=== PATIENT | female | born 1985 | race Caucasian/White ===

== ENCOUNTER 2018-06-15 12:01 | Outpatient (CLI) | payer MEDICAID ==
[2018-06-15 12:43] LABS: ADD UMIC YES; UR ASCORBIC ACID 40 mg/dL (NEGATIVE); UR BACTERIA FEW /HPF (NONE SEEN); UR BILIRUBIN (Dip) NEGATIVE (NEGATIVE); UR BLOOD (Dip) NEGATIVE (NEGATIVE); UR CALCIUM OXALATE CRYSTAL MODERATE /HPF (NONE SEEN); UR CLARITY CLOUDY (CLEAR); UR COLOR YELLOW (YELLOW); UR GLUCOSE (Dip) NEGATIVE (NEGATIVE); UR KETONES (Dip) NEGATIVE (NEGATIVE); UR LEUKOCYTE ESTERASE (Dip) NEGATIVE Leu/ul (NEGATIVE); UR MUCUS FEW /HPF (NONE SEEN); UR NITRITE (Dip) NEGATIVE (NEGATIVE); UR RBC 8 /HPF (0-5); UR SPECIFIC GRAVITY (Dip) 1.024 (1.003-1.030); UR SQUAMOUS EPITHELIAL CELL FEW /HPF (FEW); UR TOTAL PROTEIN (Dip) NEGATIVE (NEGATIVE); UR UROBILINOGEN (Dip) NEGATIVE (NEGATIVE); UR WBC 4 /HPF (0-5)
[2018-06-15 12:59] LABS: RUPTURE FETAL MEMBRANES NEGATIVE (NEGATIVE)
== END 2018-06-15 16:19 | disposition home or self-care (01) ==
LOC: OBT 12:01 → L-D 12:01 → OBT 16:19
DX: O42.92 Full-term premature rupture of membranes, unspecified as to length of time between rupture and onset of labor (principal); Z3A.37 37 weeks gestation of pregnancy
CPT/HCPCS: 76818; 81001; 84112; 87086

== ENCOUNTER 2018-06-21 17:06 | Inpatient (IN) | payer MEDICAID ==
[2018-06-21] MEDS ORDERED: LACTATED RINGER'S 1,000 ML IV (17:51)
[2018-06-21] MEDS ORDERED: OXYTOCIN 30 UNITS/LR 500 ML IV (18:00)
[2018-06-21] MEDS ORDERED: CARBOPROST 250 MCG INJ IM (18:00)
[2018-06-21] MEDS ORDERED: METHYLERGONOVINE 0.2 MG INJ IM (18:00)
[2018-06-21] MEDS ORDERED: LIDOCAINE 1% (MPF) 30 ML INJ INJ (18:00)
[2018-06-21] MEDS ORDERED: MINERAL OIL LIGHT 10 ML VIAL TOP (18:00)
[2018-06-21] MEDS ORDERED: IBUPROFEN 600 MG TAB PO (18:00)
[2018-06-21] MEDS ORDERED: MISOPROSTOL 200 MCG TAB PR (18:00)
[2018-06-21] MEDS: AMPICILLIN 2 GM/NS (PMX) 100 ML IV (18:07)
[2018-06-21] MEDS: LACTATED RINGER'S 1,000 ML IV (18:08)
[2018-06-21 18:45] LABS: ADD MAN DIFF? NO
[2018-06-21 18:49] LABS: BASOPHILS % 0.3 % (0.0-2.0); EOSINOPHILS % 0.7 % (0.0-7.0); HEMATOCRIT 35.5 % (37.0-47.0); LYMPHOCYTES # 1.5 10^3/ul (0.8-2.9); LYMPHOCYTES % 25.1 % (15.0-51.0); MEAN CORPUSCULAR HEMOGLOBIN 30.8 pg (29.0-33.0); MEAN CORPUSCULAR HGB CONC 33.8 g/dl (32.0-37.0); MEAN CORPUSCULAR VOLUME 91.3 fl (82.0-101.0); MEAN PLATELET VOLUME 12.3 fl (7.4-10.4); MONOCYTE # 0.5 10^3/ul (0.3-0.9); MONOCYTES % 8.3 % (0.0-11.0); NEUTROPHIL # 3.9 10^3/ul (1.6-7.5); NEUTROPHILS % 64.3 % (39.0-77.0); PLATELET COUNT 185 10^3/UL (140-415); RED BLOOD COUNT 3.89 10^6/ul (4.20-5.40); RED CELL DISTRIBUTION WIDTH 14.1 % (11.5-14.5)
[2018-06-21 18:49] LABS: WHITE BLOOD COUNT 6.1 10^3/ul (4.8-10.8)
[2018-06-21 19:00] LABS: RUPTURE FETAL MEMBRANES POSITIVE (NEGATIVE)
[2018-06-21 19:09] LABS: INR 0.82; PROTIME 11.4 Sec (11.9-14.9); PT RATIO 0.9
[2018-06-21 19:10] LABS: PARTIAL THROMBOPLASTIN TIME 30.6 Sec (23.0-35.0)
[2018-06-21 19:40] LABS: HEPATITIS B SURFACE ANTIGEN NEGATIVE (NEGATIVE)
[2018-06-21] MEDS: OXYTOCIN 30 UNITS/LR 500 ML IV ×2 (20:24→21:06)
[2018-06-21] MEDS: BUTORPHANOL 2 MG INJ IV (20:29)
[2018-06-21] MEDS ORDERED: LIDOCAINE 1% (MPF) 30 ML INJ (20:35)
[2018-06-21] MEDS: ACETAMINOPHEN 1000MG/100ML IV 100 ML IVPB ×2 (21:00→21:05)
[2018-06-21] MEDS ORDERED: AMPICILLIN 1 GM/NS (PMX) 50 ML IV (22:00)
[2018-06-22] MEDS ORDERED: CARBOPROST 250 MCG INJ IM
[2018-06-22] MEDS ORDERED: METHYLERGONOVINE 0.2 MG INJ IM
[2018-06-22] MEDS ORDERED: DIBUCAINE 1% 30 GM OINT TOP
[2018-06-22] MEDS ORDERED: MISOPROSTOL 200 MCG TAB PR
[2018-06-22] MEDS ORDERED: LANOLIN 7 GM TUBE TOP
[2018-06-22] MEDS ORDERED: ZOLPIDEM 5 MG TAB PO
[2018-06-22] MEDS ORDERED: OXYTOCIN 30 UNITS/LR 500 ML IV
[2018-06-22] MEDS ORDERED: HYDROCODONE/APAP (5/325) TAB PO ×2
[2018-06-22] MEDS: CEPHALEXIN 500 MG CAP PO ×5 (01:16→23:42)
[2018-06-22] MEDS: BENZOCAINE 20% 56 ML SPRAY TOP (01:16)
[2018-06-22] MEDS: WITCH HAZEL/GLYCERIN PAD PR (01:17)
[2018-06-22] MEDS: IBUPROFEN 600 MG TAB PO ×5 (01:17→23:42)
[2018-06-22] MEDS: LACTATED RINGER'S 1,000 ML IV* ×4 (01:17→23:52)
[2018-06-22 08:37] LABS: ADD MAN DIFF? NO
[2018-06-22 08:41] LABS: BASOPHILS % 0.1 % (0.0-2.0); EOSINOPHILS # 0.1 10^3/ul (0.0-0.5); EOSINOPHILS % 0.7 % (0.0-7.0); HEMATOCRIT 32.3 % (37.0-47.0); HEMOGLOBIN 10.9 g/dl (12.0-16.0); LYMPHOCYTES # 1.5 10^3/ul (0.8-2.9); LYMPHOCYTES % 21.6 % (15.0-51.0); MEAN CORPUSCULAR HGB CONC 33.7 g/dl (32.0-37.0); MEAN CORPUSCULAR VOLUME 91.8 fl (82.0-101.0); MEAN PLATELET VOLUME 12.3 fl (7.4-10.4); MONOCYTE # 0.7 10^3/ul (0.3-0.9); MONOCYTES % 10.5 % (0.0-11.0); NEUTROPHIL # 4.6 10^3/ul (1.6-7.5); NEUTROPHILS % 65.9 % (39.0-77.0); PLATELET COUNT 151 10^3/UL (140-415); RED BLOOD COUNT 3.52 10^6/ul (4.20-5.40); RED CELL DISTRIBUTION WIDTH 13.8 % (11.5-14.5)
[2018-06-22 08:41] LABS: WHITE BLOOD COUNT 6.9 10^3/ul (4.8-10.8)
[2018-06-22] MEDS: MAGNESIUM HYDROXIDE 30ML CUP PO ×2 (10:19→21:22)
[2018-06-22] MEDS: SENNA/DOCUSATE NA (8.6MG/50MG) TAB PO ×2 (10:19→21:22)
[2018-06-22 20:49] LABS: RAPID PLASMA REAGIN NONREACTIVE (NR)
[2018-06-23] MEDS: CEPHALEXIN 500 MG CAP PO ×2 (05:31→11:26)
[2018-06-23] MEDS: IBUPROFEN 600 MG TAB PO ×2 (05:32→11:26)
[2018-06-23] MEDS: SENNA/DOCUSATE NA (8.6MG/50MG) TAB PO (08:21)
[2018-06-23] MEDS: MAGNESIUM HYDROXIDE 30ML CUP PO (08:21)
[2018-06-23] MEDS: VARICELLA VACCINE LIVE/PF 1,350 UNIT/0.5 ML ML SC* (09:58)
[2018-06-23] MEDS: DIPHTH/TET/ACEL PERTUSS (ADULT) 0.5 ML VIAL IM* (09:58)
[2018-06-23] MEDS: MEASLES,MUMPS,RUBELLA VACCINE INJ SC* (09:58)
== END 2018-06-23 15:00 | disposition home or self-care (01) | DRG 807 ==
LOC: L-D 17:06 → PP1 23:36
PROVIDERS: Obstetrics & Gynecology
PROC: 10E0XZZ Delivery of Products of Conception, External Approach (ICD-10-PCS; principal; 2018-06-21)
PROC: 0KQM0ZZ Repair Perineum Muscle, Open Approach (ICD-10-PCS; 2018-06-21)
PROC: 4A1HXCZ Monitoring of Products of Conception, Cardiac Rate, External Approach (ICD-10-PCS; 2018-06-21)
DX: O70.1 Second degree perineal laceration during delivery (principal); Z37.0 Single live birth; Z3A.38 38 weeks gestation of pregnancy
CPT/HCPCS: 76815; 84112; 85025; 85610; 85730; 86592; 86850; 86900; 86901; 87340; 90716